=== PATIENT | female | born 1980 | race Caucasian/White ===

== ENCOUNTER 2016-12-20 07:40 | Day surgery (SDC) | payer BC ==
[2016-12-20] MEDS ORDERED: Lactated Ringers 1,000 ML IV SCH (07:45)
[2016-12-20] MEDS ORDERED: Propofol 200 MG/20 ML SDV IV ONE (09:30)
[2016-12-20] MEDS ORDERED: Lactated Ringers 1,000 ML IV ONE (09:30)
[2016-12-20] MEDS ORDERED: Lidocaine 2% 100 MG/5 ML Syringe IVPUSH ONE (09:30)
[2016-12-20] MEDS ORDERED: Midazolam 1 MG/ML 2 ML SDV IV ONE (09:30)
[2016-12-20] MEDS ORDERED: Ondansetron 4 MG/2 ML SDV IVPUSH ONE (09:30)
--- NOTE | 2016-12-20 10:11 | PCM.OPNOTE ---
- General Post-Op/Procedure Note Date of Surgery/Procedure: 12/20/16 Operative Procedure(s): egd with bx. c scope Findings: gastritis with gastric polyp esophagitis normal colon Pre Op Diagnosis: hx of gerd. strong family hx of colon cancer Post-Op Diagnosis: gastritis with gastric polyp. esophagitis. normal colon Anesthesia Technique: MAC Primary Surgeon: Fernando Foy Anesthesia Provider: Therese Duval Pathology: gastric mucosa gastric polyp distal esophagus Complications: None Condition: Good Free Text/Narrative:: see dictation
--- NOTE | 2016-12-20 10:19 | OR ---
DATE OF OPERATION: 12/20/2016 SURGEON: Fernando Foy MD PROCEDURE PERFORMED: Upper endoscopy with cold forceps biopsy and colonoscopy. PREOPERATIVE DIAGNOSES: History of symptomatic gastroesophageal reflux disease and strong family history of adenocarcinoma of the colon. POSTOPERATIVE DIAGNOSES: Gastritis with hyperplastic polyps, esophagitis, and normal colonoscopy. INDICATIONS FOR PROCEDURE: This is a 36-year-old white female with the above- mentioned complaints. She was offered and accepted upper and lower endoscopy. DESCRIPTION OF OPERATION: After an excellent IV sedation was administered, the bite block was inserted. The flexible endoscope was inserted and passed without difficulty down the patient's esophagus and into the stomach. The stomach was insufflated. Scope was passed through the pylorus to the second portion of the duodenum and then slowly withdrawn. The following findings were noted. Duodenum was unremarkable. Stomach demonstrated diffuse gastritis, especially in the area of the antrum. This was biopsied. In addition, along the area of the fundus, she had several hyperplastic-appearing polyps, and these were biopsied and submitted in the same container. GE junction measured at approximately 38 cm, and she had some evidence of esophagitis involving the distal 2 to 3 cm. These were biopsied with cold biopsy forceps as well. The remainder of the esophageal exam was unremarkable. Our attention was then turned to the patient's colon. Digital rectal exam was performed. Flexible colonoscope was then inserted and advanced without difficulty to the patient's cecum. The prep was excellent. The following findings were noted. Ascending colon, unremarkable. Transverse colon, unremarkable. Descending colon, unremarkable. Sigmoid and rectum, unremarkable. Anus unremarkable. The colon was deflated. The scope was removed. The patient tolerated the procedure well and was taken to Recovery. /[id number] /MODL
[2016-12-20 11:25] VITALS: BP 104/60
== END 2016-12-20 11:25 | disposition home or self-care (01) ==
LOC: FB.SDS 07:40
PROVIDERS: ATTEND Surgery
DX: K29.50 Unspecified chronic gastritis without bleeding (principal); K31.89 Other diseases of stomach and duodenum; K31.7 Polyp of stomach and duodenum; K20.9 Esophagitis, unspecified; Z79.899 Other long term (current) drug therapy; Z98.890 Other specified postprocedural states
CPT/HCPCS: 43239; 45378; 81025; 88305; 88313; 88342; J2250; J2405; J2704; J7120